=== PATIENT | male | born 1950 | race Caucasian/White ===

== ENCOUNTER 2021-07-12 07:18 | Outpatient (CLI) | payer OTHER, SELFPAY ==
--- NOTE | ~2021-07-12 | US_ITS ---
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 PROCEDURE: Realtime right upper abdominal ultrasound. COMPARISON: No prior studies for comparison. FINDINGS: The pancreas is normal without focal mass or pancreatic ductal dilation. Liver echotexture is normal without focal mass or intrahepatic biliary dilatation. There is normal directional flow i n the portal vein. Gallbladder is surgically absent. Common bile duct measures 5 mm. No sonographic Martinez's sign. Spl een measures 11.1 cm. No focal splenic masses. IMPRESSION: 1: Normal limited abdominal ultrasound. Reviewed, dictated and finalized at location A.
== END 2021-07-12 07:19 | disposition home or self-care (01) ==
LOC: ANHIMG 07:29
PROVIDERS: Visit Provider Internal Medicine
DX: D05.11 Intraductal carcinoma in situ of right breast (principal); D69.6 Thrombocytopenia, unspecified; D70.8 Other neutropenia
CPT/HCPCS: 76705

== ENCOUNTER 2021-08-30 11:33 | Outpatient (CLI) | payer OTHER, SELFPAY ==
--- NOTE | ~2021-08-30 | MM_ITS ---
EXAMINATION: MM diagnostic shashank LT w etienne HISTORY: History of right mastectomy TECHNIQUE: Additional 3-D tomosynthesis images of the left breast were performed and synthetic 2-D im ages were generated. CAD analysis was submitted and interpreted. COMPARISON: None BREAST PARENCHYMAL COMPOSITION: Breast composed of scattered areas of fibroglandular density FINDINGS: There is focal asymmetric tissue in the upper outer quadrant of the left breast with adjace nt tissue marker. No suspicious calcifications or architectural distortion. IMPRESSION: 1. Asymmetric density upper outer quadrant of the left breast. 2. Recommend comparison to previous outside mammograms. BI-RADS Category 0: Incomplete: Needs additional imaging evaluation. Reviewed, dictated and finalized at location A.
== END 2021-08-30 11:34 | disposition home or self-care (01) ==
DX: D05.11 Intraductal carcinoma in situ of right breast (principal); Z98.890 Other specified postprocedural states; R92.8 Other abnormal and inconclusive findings on diagnostic imaging of breast
CPT/HCPCS: 77061; 77065; G0279